=== PATIENT | male | born 1985 | race Caucasian/White ===

== ENCOUNTER 2019-10-03 19:40 | Emergency (ER) | payer OTHER ==
[2019-10-03] MEDS ORDERED: Proparacaine 0.5% Ophth Soln 15 ML Bottle ONE (19:43)
[2019-10-03] MEDS ORDERED: Fluorescein 1 MG Ophth Strip EYELF STA (19:55)
[2019-10-03] MEDS ORDERED: Proparacaine 0.5% Ophth Soln 15 ML Bottle EYELF ONE (20:00)
[2019-10-03] MEDS ORDERED: Diphtheria,Pertussis(Acell),Tetanus Vaccine 0.5 ML Syringe IM ONE (20:25)
[2019-10-03] MEDS ORDERED: FLU Vacc QS2019-20(6MOS+)/PF 60 MCG/0.5 ML SYRINGE IM ONE (20:30)
[2019-10-03] MEDS ORDERED: Erythromycin Base 0.5% Ophth Oint 1 GM Tube EYELF STA (20:47)
--- NOTE | 2019-10-03 20:53 | EDM.PDOC ---
ED HPI GENERAL MEDICAL PROBLEM - General Chief Complaint: Eye Problems Stated Complaint: PIECE OF METAL IN LEFT EYE Time Seen by Provider: 10/03/19 19:49 Source of Information: Reports: Patient, Family () History Limitations: Reports: No Limitations - History of Present Illness INITIAL COMMENTS - FREE TEXT/NARRATIVE: Mr. 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 He states that he was wearing safety goggles, but felt like a foreign body got into his left eye. He flushed his eye and applied eyedrops, but the foreign body sensation is still there, and when he looked in the mirror, he can see a small black speck at about the 8:00 position. No prior eye injuries. The patient believes his last tetanus vaccination was more than 10 years ago. His PCP is CHLOE Castillo. He did not receive an influenza vaccine this season, but is willing to receive one here today. Treatments TRAINING MGR: Reports: Other (see below) Other Treatments TRAINING MGR: flushed Left Eye Pain Score (Numeric/FACES): 3 - Related Data Allergies Allergy/AdvReac Type Severity Reaction Status Date / Time No Known Allergies Allergy Verified 10/03/19 19:52 Home Meds: Home Meds . [No Known Home Meds] 10/03/19 [History] Past Medical History - Past Surgical History HEENT Surgical History: Reports: Oral Surgery (wisdom teeth extraction), Tonsillectomy Social & Family History - Tobacco Use Smoking Status *Q: Never Smoker - Caffeine Use Caffeine Use: Reports: Coffee, Soda - Alcohol Use Alcohol Use History: Yes Alcohol Use Frequency: Socially - Recreational Drug Use Recreational Drug Use: No - Living Situation & Occupation Living situation: Reports: , with Spouse, with Family (1 daughter) Occupation: Employed (Project Superintendent) ED ROS GENERAL - Review of Systems Review Of Systems: Comprehensive ROS is negative, except as noted in HPI. ED EXAM GENERAL W FULL EYE - Physical Exam Exam: See Below Exam Limited By: No Limitations General Appearance: Alert, WD/WN, No Apparent Distress Eyelids: Right: Normal Appearance, Left: Edema (slight), Lid Everted for Exam Conjunctiva & Sclera: Right: Normal Appearance, Left: Injected (mild) Cornea Exam: Right: Normal Appearance, Left: Foreign Body (8:00 position,at the juction of the sclera and cornea) Extraocular Movements: Bilateral: Intact Pupils: Normal Accommodation Pupillary Size: Bilateral: 5 mm Pupillary Reaction: Bilateral: Brisk Anterior Chamber: Bilateral: Normal Appearance ED EYE w/ Add Procedure - Eye Procedure Alcaine Drops Administered: Yes Eye FB Removal: Removal w/ Cotton Swab (moistened), Removal w/ Needle Antibiotic Oinment/Drps Admin: Left Eye (erythromycin ointment) Course - Vital Signs Last Recorded V/S: Last Vital Signs Temp 36.7 C 10/03/19 20:00 Pulse 79 10/03/19 20:00 Resp 20 10/03/19 20:00 BP 152/107 H 10/03/19 20:00 Pulse Ox 99 10/03/19 20:00 - Orders/Labs/Meds Orders: Active Orders 24 hr Category Date Time Status Influenza Vaccine Charge [RC] .DISCHARGE Care 10/03/19 20:25 Ordered Vaccines to be Administered [RC] PER UNIT ROUTINE Care 10/03/19 20:25 Ordered Erythromycin Base [Erythromycin 0.5% Ophth Oint] Med 10/03/19 20:47 Stat 1 gm EYELF ONETIME STA Meds: Medications Discontinued Medications Generic Name Dose Route Start Last Admin Trade Name Freq PRN Reason Stop Dose Admin Diphtheria/Tetanus/Acell Pertussis 0.5 ml 10/03/19 20:25 Adacel IM 10/03/19 20:26 .ONCE ONE Fluorescein Sodium 1 mg 10/03/19 19:55 10/03/19 20:14 Ful-Heather EYELF 10/03/19 19:56 1 mg ONETIME STA Administration Influenza Virus Vaccine 60 mcg 10/03/19 20:30 Fluzone Quad [id number] Syringe IM 10/03/19 20:31 .ONCE ONE Proparacaine HCl Confirm 10/03/19 19:43 10/03/19 20:14 Proparacaine 0.5% Ophth Soln Administered 10/03/19 19:44 Not Given Dose 15 ml .ROUTE .STK-MED ONE Proparacaine HCl 2 ml 10/03/19 20:00 10/03/19 20:14 Proparacaine 0.5% Ophth Soln EYELF 10/03/19 20:01 2 ml ONETIME ONE Administration - Re-Assessments/Exams Free Text/Narrative Re-Assessment/Exam: 10/03/19 20:49 Following anesthesia with proparacaine eyedrops, a tiny piece of metal was dislodged from the patient's left eye at the 8 o'clock position at the junction of the cornea and sclera using a 27 Ga needle, then removed with a moistened cotton-tipped swab, all under slit lamp. A minimal residual rust ring was seen. The patient tolerated the procedure well. Erythromycin ophthalmic ointment has been ordered, and I will have the patient instill some into his lower left eyelid 6 times a day for the next few days. If he continues to have eye pain after 3 days, he should follow-up with an eye doctor. The patient will be given both tetanus and influenza vaccines prior to discharge. Departure - Departure Time of Disposition: 20:51 Disposition: Home, Self-Care 01 Condition: Good Clinical Impression: Foreign body of left cornea - Discharge Information *PRESCRIPTION DRUG MONITORING PROGRAM REVIEWED*: Not Applicable *COPY OF PRESCRIPTION DRUG MONITORING REPORT IN PATIENT COLBY: Not Applicable Referrals: Elizabeth Campo PA-C [Primary Care Provider] - Additional Instructions: You were seen in the emergency room after grinding metal at work, followed by the development of a foreign body sensation in your eye. On examination, a small metallic foreign body was found lodged at the junction of your left cornea and sclera at the 8 o'clock position. It was removed under slit lamp. Your nurse has demonstrated how to instill erythromycin ointment in your eye, and gave you the tube. Instill approximately 1 cm of erythromycin into your lower eyelid up to 6 times a day, to help with discomfort. The erythromycin ointment will also help prevent an eye infection. If you continue to have left eye discomfort after 3 days, please follow-up with an eye doctor. If any other problems, please do not hesitate to return to the ER. *You received both a tetanus vaccination and an influenza vaccination during your ER visit.* Sepsis Event Note - Evaluation Sepsis Screening Result: No Definite Risk - Focused Exam Vital Signs: Vital Signs Temp Pulse Resp BP Pulse Ox 10/03/19 20:00 36.7 C 79 20 152/107 H 99 Date Exam was Performed: 10/03/19 Time Exam was Performed: 20:48 - My Orders Last 24 Hours: My Active Orders 10/03/19 20:25 Influenza Vaccine Charge [RC] .DISCHARGE Vaccines to be Administered [RC] PER UNIT ROUTINE 10/03/19 20:47 Erythromycin Base [Erythromycin 0.5% Ophth Oint] 1 gm EYELF ONETIME STA - Assessment/Plan Last 24 Hours: My Active Orders 10/03/19 20:25 Influenza Vaccine Charge [RC] .DISCHARGE Vaccines to be Administered [RC] PER UNIT ROUTINE 10/03/19 20:47 Erythromycin Base [Erythromycin 0.5% Ophth Oint] 1 gm EYELF ONETIME STA
== END 2019-10-03 21:07 | disposition home or self-care (01) ==
LOC: SUPCPDRO 19:40 → JD.ED 19:40
DX: T15.02XA Foreign body in cornea, left eye, initial encounter (principal); Z23 Encounter for immunization
CPT/HCPCS: 65222; 90471; 90686; 90715; 99283; A9270; 99282; G0008

== ENCOUNTER 2021-07-30 13:29 | Emergency (ER) | payer BC, OTHER ==
--- NOTE | 2021-07-30 14:19 | EDM.PDOC ---
ED HPI GENERAL MEDICAL PROBLEM - General Chief Complaint: Respiratory Problem Stated Complaint: SOB Time Seen by Provider: 07/30/21 14:01 Source of Information: Reports: Patient, RN Notes Reviewed History Limitations: Reports: No Limitations - History of Present Illness INITIAL COMMENTS - FREE TEXT/NARRATIVE: Patient is a 36-year-old male who presents to the ER for his ongoing respiratory illness. States that he has been ill for about 10 days now. Has been having issues with elevated temperatures, cough/shortness of breath, some mild nausea when he takes medications, but no vomiting or diarrhea. Also having body aches, headaches, and generalized lethargy and some mild issues with loss of his sense of taste of smell. Not vaccinated for COVID-19. States that he had issues with pneumonia a few years ago, and it seems similar to that. He states he did go to the walk-in clinic but no investigation was done and they sent him here for ongoing management. - Related Data Allergies Allergy/AdvReac Type Severity Reaction Status Date / Time No Known Allergies Allergy Verified 10/03/19 19:52 Home Meds: Home Meds dexAMETHasone [Decadron] 6 mg PO DAILY 10 Days #10 tablet 07/30/21 [Rx] Past Medical History - Past Health History Medical/Surgical History: Denies Medical/Surgical History - Past Surgical History HEENT Surgical History: Reports: Oral Surgery (wisdom teeth extraction), T onsillectomy Social & Family History - Caffeine Use Caffeine Use: Reports: Coffee, Soda - Living Situation & Occupation Living situation: Reports: , with Spouse, with Family (1 daughter) Occupation: Employed (Gift Wrapper) ED ROS GENERAL - Review of Systems Review Of Systems: Comprehensive ROS is negative, except as noted in HPI. ED EXAM, GENERAL - Physical Exam Exam: See Below Exam Limited By: No Limitations General Appearance: Alert, WD/WN, No Apparent Distress Respiratory/Chest: No Respiratory Distress, Lungs Clear, Normal Breath Sounds, No Accessory Muscle Use, Chest Non-Tender Cardiovascular: Normal Peripheral Pulses, Regular Rate, Rhythm, No Edema GI/Abdominal: Normal Bowel Sounds, Soft, Non-Tender, No Distention, No Mass Extremities: Normal Inspection, Normal Capillary Refill Neurological: Alert, Oriented, Normal Cognition, No Motor/Sensory Deficits Psychiatric: Normal Affect, Normal Mood Skin Exam: Warm, Dry, Intact, Normal Color, No Rash Course - Vital Signs Last Recorded V/S: Last Vital Signs Temp 99.7 F 07/30/21 13:50 Pulse 116 H 07/30/21 13:50 Resp 21 H 07/30/21 13:50 BP 132/99 H 07/30/21 13:50 Pulse Ox 93 L 07/30/21 13:50 - Orders/Labs/Meds Labs: Laboratory Tests 07/30/21 07/30/21 07/30/21 Range/Units 13:21 14:16 14:34 WBC 2.49 L* (4.23-9.07) K/mm3 RBC 5.50 (4.63-6.08) M/mm3 Hgb 16.3 (13.7-17.5) gm/dl Hct 47.1 (40.1-51.0) % MCV 85.6 (79.0-92.2) fl MCH 29.6 (25.7-32.2) pg MCHC 34.6 (32.2-35.5) g/dl RDW Std Deviation 39.8 (35.1-43.9) fL Plt Count 140 L (163-337) K/mm3 MPV 9.0 L (9.4-12.3) fl Neut % (Auto) 61.1 (34.0-67.9) % Lymph % (Auto) 30.1 (21.8-53.1) % [place] % (Auto) 8.0 (5.3-12.2) % Eos % (Auto) 0 L (0.8-7.0) Baso % (Auto) 0.4 (0.1-1.2) % Neut # (Auto) 1.52 L (1.78-5.38) K/mm3 Lymph # (Auto) 0.75 L (1.32-3.57) K/mm3 [place] # (Auto) 0.20 L (0.30-0.82) K/mm3 Eos # (Auto) 0.00 L (0.04-0.54) K/mm3 Baso # (Auto) 0.01 (0.01-0.08) K/mm3 Sodium 141 (136-145) mEq/L Potassium 4.1 (3.5-5.1) mEq/L Chloride 101 (98-107) mEq/L Carbon Dioxide 30 (21-32) mEq/L Anion Gap 14.1 (5-15) BUN 12 (7-18) mg/dL Creatinine 1.0 (0.7-1.3) mg/dL Est Cr Clr Drug Dosing 93.93 mL/min Estimated GFR (MDRD) > 60 (>60) mL/min BUN/Creatinine Ratio 12.0 L (14-18) Glucose 92 (70-99) mg/dL Calcium 8.1 L (8.5-10.1) mg/dL Total Bilirubin 0.8 (0.2-1.0) mg/dL AST 71 H (15-37) U/L ALT 78 H (16-63) U/L Alkaline Phosphatase 59 (46-116) U/L C-Reactive Protein 6.0 H* (<1.0) mg/dL Total Protein 7.1 (6.4-8.2) g/dl Albumin 3.8 (3.4-5.0) g/dl Globulin 3.3 gm/dL Albumin/Globulin Ratio 1.2 (1-2) Influenza Type A RNA Negative (NEGATIVE) Influenza Type B RNA Negative (NEGATIVE) SARS-CoV-2 RNA ([place]) Positive H (NEGATIVE) - Re-Assessments/Exams Free Text/Narrative Re-Assessment/Exam: 07/30/21 14:18 Patient presents to the ER for evaluation of his suspected COVID-19. COVID-19 swab was obtained at the time of triage, go ahead get a chest x-ray and basic labs to see if there is any overlying bacterial pneumonia. 07/30/21 15:51 Chest x-ray is concerning for ongoing Covid pneumonia, moderate to severe. The patient's Covid screen did come back positive. White count slightly low typical for viral reaction, CRP is 6. The patient's O2 sats have been 86% on room air, and we did place 1 L oxygen via nasal cannula and his O2 sats did seem to recuperate to around 91-92%. Patient will be sent home with home oxygen and a prescription for oral steroids. Departure - Departure Time of Disposition: 15:52 Disposition: Home, Self-Care 01 Condition: Good Clinical Impression: Pneumonia due to COVID-19 virus, Hypoxia - Discharge Information *PRESCRIPTION DRUG MONITORING PROGRAM REVIEWED*: No *COPY OF PRESCRIPTION DRUG MONITORING REPORT IN PATIENT COLBY: No Instructions: 10 Things You Can Do to Manage Your COVID-19 Symptoms at Home - [facility] (04/01/2021) Referrals: PCP,None [Primary Care Provider] - Forms: ED Department Discharge Additional Instructions: You were seen in the ER today for ongoing and/or worsening respiratory symptoms. Your chest x-ray showed signs of a viral pneumonia typical for COVID-19 at this time. Your COVID-19 screen did come back positive. Your oxygen level was a lit tle bit low on room air while being in the ER, and you have been sent home with home oxygen for ongoing management of your COVID-19. You will need to wear at least 1 to 2 L via nasal cannula at rest and with exercise. If you should need more than 4 L via nasal cannula at home to get oxygen saturations at 90% or above, then you will need to return to the ER or hospital for ongoing management. You have been given a prescription for dexamethasone you need to take 1 tablet daily for the next 10 days or while you are on oxygen for ongoing management of your COVID-19. This medication was electronically sent to the [place] pharmacy located in the [facility] grocery store. Please try to increase your oral fluid intake, and eat multiple small meals throughout the day, to keep yourself healthy. You need to keep yourself nourished in order to fight off this disease. You can try a liquid diet like gatorade/powerade as well to get your electrolytes. You may take 500 mg Tylenol every hours 6 hours for pain/fever relief. Do not exceed 4000 mg Tylenol in a 24-hour time span. However, running a fever is your body's natural response to illness, and it allows the body to develop antibodies to disease, we are recommending trying to limit the use of Tylenol as much as possible to allow your body's natural immune response. Recommend you obtain a pulse oximeter and monitor your oxygen levels at home, you should place the monitor on your finger, and sit in a calm, quiet position for a few minutes and then record the number that is on the screen. If this consistently below 90% on room air without movement, this would be cause for concern to come back to the hospital for further management of your COVID-19 disease. Please follow all guidance set forth from [facility], regarding isolation purposes for your disease process. General isolation times are 10 days from when you started being symptomatic. Since you have not already been symptomatic for about 10 days, it is likely that you may not have to quarantine at all, but the [facility] will still likely call you for ongoing management. Sepsis Event Note (ED) - Evaluation Sepsis Screening Result: No Definite Risk - Focused Exam Vital Signs: Vital Signs Temp Pulse Resp BP Pulse Ox 07/30/21 13:50 99.7 F 116 H 21 H 132/99 H 93 L
--- NOTE | 2021-07-30 15:18 | CR ---
Chest: Portable view of the chest was obtained. Comparison: No prior chest x-ray is available. Heart size and mediastinum are normal. Patchy increased density is seen on both sides of the chest. Impression: 1. Findings felt compatible with moderate to severe bilateral COVID pneumonia. Diagnostic code #3
[2021-07-30 15:36] LABS: CORONAVIRUS COVID-19 NAA POSITIVE (NEGATIVE)
== END 2021-07-30 16:10 | disposition home or self-care (01) ==
LOC: JD.ED 13:29
DX: U07.1 COVID-19 (principal); J12.82 Pneumonia due to coronavirus disease 2019; R09.02 Hypoxemia
CPT/HCPCS: 0240U; 36415; 71045; 80053; 85025; 86140; 99285